=== PATIENT | male | born 1935 | race Caucasian/White ===

== ENCOUNTER 2019-02-22 05:20 | Outpatient (CLI) | payer MEDICARE, OTHER ==
--- NOTE | 2019-02-22 06:32 | Ultrasound Report ---
Reason: LOCALIZED SWELLING,MASS AND LUMP,NECK Procedure Date: 02/22/2019 Accession Number: [id number] / [id number] Procedure: US - Head or Neck Soft Tissue CPT Code: FULL RESULT: EXAM: NECK ULTRASOUND EXAM DATE: 02/22/2019 05:21 AM. CLINICAL HISTORY: LOCALIZED SWELLING,MASS AND LUMP,NECK. COMPARISON: None. TECHNIQUE: Real-time sonographic imaging was performed by the casing inspector utilizing color-flow. Multiple senior human resources representative static images were saved for review. FINDINGS: Ultrasound of the palpable abnormality demonstrates a 4.0 x 3.0 x 2.9 cm mass, likely representing an enlarged lymph node. It appears adjacent to but separate from the submandibular gland. In the lower pole of the right lobe of the thyroid, there is a 2.5 x 2.4 x 1.6 cm heterogeneous nodule with a calcification. Deeper in the right lobe of the thyroid, there is hypoechoic lobulated 2.4 x 2.4 x 2.3 cm nodule, with a calcification. In the lower pole of the left lobe of the thyroid, there is a 3.3 x 2.8 x 2.4 cm heterogeneous nodule with a calcification. There is a 2.2 x 1.6 cm submental lymph node. IMPRESSION: Palpable abnormality correlating with an enlarged right submandibular lymph node. Enlarged submental lymph node. Bilateral suspicious thyroid nodules. RADIA
== END 2019-02-22 05:21 | disposition home or self-care (01) ==
LOC: DI 05:20
PROVIDERS: ATTEND Internal Medicine
DX: R59.0 Localized enlarged lymph nodes (principal)
CPT/HCPCS: 76536

== ENCOUNTER 2019-03-19 07:06 | Outpatient (CLI) | payer MEDICARE, OTHER ==
[2019-03-19] MEDS ORDERED: IOVERSOL 320 100 ML VIAL IVP ONE ×3 (07:07→11:47)
[2019-03-19 07:49] LABS: CREATININE 1.1 mg/dL (0.6-1.2)
--- NOTE | 2019-03-20 11:30 | CT Report ---
Reason: LOCALIZED SWELLING,MASS LUMP-NECK,NEOPLASM UNSPECI Procedure Date: 03/19/2019 Accession Number: [id number] / [id number] Procedure: CT - SOFT TISSUE NECK W CPT Code: FULL RESULT: EXAM: CT SOFT TISSUE NECK WITH CONTRAST. EXAM DATE: 03/19/2019 08:47 AM. HISTORY: Right-sided neck mass and pain. COMPARISONS: Soft tissue neck ultrasound 02/22/2019. TECHNIQUE: Routine soft tissue neck CT protocol. Reconstructions: Coronal and sagittal. IV contrast: 80 mL Optiray 320. In accordance with CT protocol optimization, one or more of the following dose reduction techniques were utilized for this exam: automated exposure control, adjustment of mA and/or KV based on patient size, or use of iterative reconstructive technique. FINDINGS: The right and left thyroid lobe are diffusely enlarged. There are calcifications in each thyroid lobe. Thyroid nodules are better seen on the comparison ultrasound. The reader is referred to that report for findings in thyroid lobe. In the right neck at the level of the submandibular gland there is a well-circumscribed 2.8 x 3.4 cm soft tissue mass which anteriorly displaces the submandibular gland. There is mass effect on the internal jugular vein which is significantly compressed. This extends down to the level of the inferior hyoid. This lesion enhances somewhat similar to skeletal muscle. Nonenlarged lymph nodes are seen bilaterally along each internal jugular chain. No mass is present in either submandibular gland. No mass is present in either parotid gland. No mass is present in the nasopharynx. Parapharyngeal fat is symmetric. There is medial position of the left true vocal cord. No subglottic stenosis is present. No mass is present in either orbit. No enhancing mass is identified and the brain parenchyma. No suspicious spiculated masses present in either lung apex. Degenerative disk disease and osteophyte formation are seen throughout the visualized spine with multilevel cervical foraminal stenosis. There is central canal stenosis at multiple levels in the cervical spine most evident at C5-C6 and C6-C7. IMPRESSION: 1. There is a well-circumscribed mass at level 2 on the right with mass-effect on the submandibular gland and near complete effacement of the internal jugular vein. High on the differential would be a metastatic lymph node or alternatively a lymphoproliferative disorder. 2. The thyroid gland is diffusely enlarged and contains multiple thyroid nodules. CT cannot distinguish benign from malignant thyroid disease. The reader is referred to the patient's thyroid ultrasound report which better demonstrates the patient's thyroid abnormalities. 3. Degenerative disk disease and osteophyte formation are seen throughout the visualized spine. RADIA
== END 2019-03-19 07:07 | disposition home or self-care (01) ==
LOC: DI 07:06
PROVIDERS: ATTEND Otolaryngology
DX: R22.1 Localized swelling, mass and lump, neck (principal); D49.89 Neoplasm of unspecified behavior of other specified sites; E04.2 Nontoxic multinodular goiter; M50.30 Other cervical disc degeneration, unspecified cervical region; M48.02 Spinal stenosis, cervical region
CPT/HCPCS: 36415; 70491; 82565; Q9967

== ENCOUNTER 2019-08-02 15:24 | Emergency (ER) | payer MEDICARE, OTHER ==
[2019-08-02] MEDS ORDERED: SODIUM CHLORIDE 0.9% 1,000 ML IV ONE (17:08)
--- NOTE | 2019-08-02 17:21 | ED Physician Documentation ---
History of Present Illness - Stated complaint Stated Complaint: DEHYDRATION - Chief complaint Chief Complaint: General - History obtained from History obtained from: Patient, Friend - History of Present Illness Timing: Other (He just finished up chemotherapy and radiation for throat cancer. He has been having trouble swallowing despite his oncologist prescribing Magic mouthwash. Morphine helped somewhat. He feels weak and dizzy and he was pale prior to arrival so he is here for IV fluids.) Review of Systems Constitutional: denies: Fever, Chills Cardiac: denies: Chest pain / pressure, Palpitations Respiratory: denies: Dyspnea, Cough GI: denies: Abdominal Pain PD PAST MEDICAL HISTORY - Allergies Allergies/Adverse Reactions: Allergies Allergy/AdvReac Type Severity Reaction Status Date / Time No Known Drug Allergies Allergy Verified 08/02/19 15:38 PD ED PE NORMAL - Vitals Vital signs reviewed: Yes - General General: Alert and oriented X 3, No acute distress - HEENT HEENT: Pharynx benign - Neck Neck: Supple, no meningeal sign, No bony TTP - Cardiac Cardiac: RRR, No murmur - Respiratory Respiratory: No respiratory distress, Clear bilaterally - Abdomen Abdomen: Non tender - Extremities Extremities: No edema, No calf tenderness / cord - Neuro Neuro: Alert and oriented X 3, Normal speech Results - Vitals Vitals: Vital Signs - 24 hr 08/02/19 08/02/19 08/02/19 15:38 17:29 18:32 Temperature 36.5 C Heart Rate 99 74 75 Respiratory 16 18 18 Rate Blood Pressure 138/68 H 119/64 111/55 L O2 Saturation 98 100 98 Oxygen O2 Source Room air - Labs Labs: Laboratory Tests 08/02/19 17:39 Sodium 143 Potassium 4.7 Chloride 109 Carbon Dioxide 24 Anion Gap 10.0 BUN 42 H Creatinine 1.8 H Estimated GFR (MDRD) 36 L Glucose 112 H Calcium 9.2 PD MEDICAL DECISION MAKING - ED course ED course: 83-year-old gentleman with recurrent dehydration related to poor oral intake from recent radiation therapy for throat cancer. He does have mild acute kidney injury and is administered 2 L of fluid here. Departure - Departure Disposition: 01 Home, Self Care Clinical Impression: Dehydration Condition: Good Record reviewed to determine appropriate education?: Yes Comments: Try to drink fluids if you can, return for new or worsening symptoms. You are welcome back any time if you need IV fluids.
[2019-08-02 17:55] LABS: CALCIUM 9.2 mg/dL (8.5-10.3); CREATININE 1.8 mg/dL (0.6-1.2)
[2019-08-02] MEDS ORDERED: LACTATED RINGERS 1,000 ML IV STA (18:06)
[2019-08-02 19:42] VITALS: BP 116/58
== END 2019-08-02 19:45 | disposition home or self-care (01) ==
LOC: ED 15:24
DX: E86.0 Dehydration (principal); N17.9 Acute kidney failure, unspecified; C14.0 Malignant neoplasm of pharynx, unspecified
CPT/HCPCS: 36415; 80048; 96360; 96361; 99283; 99285; J7120

== ENCOUNTER 2020-10-26 02:51 | Outpatient (CLI) | payer MEDICARE, OTHER | END 2020-10-26 02:52 | disposition critical access hospital (66) | LOC: EMS 02:51 | PROVIDERS: ATTEND Surgery | DX: S09.90XA Unspecified injury of head, initial encounter (principal); W18.30XA Fall on same level, unspecified, initial encounter; Y93.89 Activity, other specified; Y92.009 Unspecified place in unspecified non-institutional (private) residence as the place of occurrence of the external cause | CPT/HCPCS: A0425; A0429 ==

== ENCOUNTER 2020-10-26 03:22 | Emergency (ER) | payer MEDICARE, OTHER ==
--- NOTE | 2020-10-26 03:44 | ED Physician Documentation ---
History of Present Illness - Stated complaint Stated Complaint: GLF - History obtained from History obtained from: Patient, EMS - Additonal information Additional information: Pt is brought to the emergency department by EMS after becoming intoxicated this evening and sustaining a ground-level fall. The patient does not have any recollection of the event, though he is aware that he has been drinking tonight. Medics report that the patient has "several mixed drinks". The family reported to medics that the patient stood up from the table and when he did, he seemed to lose his balance and staggering backward, hitting a wall and then falling to the floor. He fell backwards onto the floor, hitting the back of his head and was unconscious for an estimated some minutes, possibly 3-4. The patient awoke on his own and was placed on a backboard in C-spine precautions with c-collar by medics. The patient denies any rib, chest, or abdominal pain. No extremity pain. No shortness of breath. No headache or visual changes. No neck pain. No back pain. No other complaints at this time. Pt states he does not want to be here and does not think there is anything wrong with him and just wants to go home. Review of Systems Ten Systems: 10 systems reviewed and negative Constitutional: reports: Reviewed and negative Eyes: reports: Reviewed and negative Ears: reports: Reviewed and negative Nose: reports: Reviewed and negative Throat: reports: Reviewed and negative Cardiac: reports: Reviewed and negative Respiratory: reports: Reviewed and negative GI: reports: Reviewed and negative : reports: Reviewed and negative Skin: reports: Reviewed and negative Musculoskeletal: reports: Reviewed and negative Neurologic: reports: Head injury, LOC Psychiatric: reports: Reviewed and negative Endocrine: reports: Reviewed and negative Immunocompromised: reports: Reviewed and negative PD PAST MEDICAL HISTORY - Present Medications Home Medications: Ambulatory Orders Medication Instructions Recorded Confirmed Insulin Glargine [Lantus Solostar] 0 unit 10/26/20 Ketoconazole/Skin Cleanser 28 554 gm TP 10/26/20 10/26/20 [Ketodan 2% Foam Kit] Lisinopril [Zestril] 40 mg PO 10/26/20 Metformin HCl [Fortamet] 1,000 mg PO 10/26/20 Simvastatin [Zocor] 40 mg PO 10/26/20 Timolol Maleate/Pf [Timolol 1 each OP 10/26/20 Maleate 0.5% Eye Drop] hydroCHLOROthiazide [Hydrodiuril] 12.5 mg PO DAILY 10/26/20 10/26/20 - Allergies Allergies/Adverse Reactions: Allergies Allergy/AdvReac Type Severity Reaction Status Date / Time No Known Drug Allergies Allergy Verified 08/04/19 07:20 PD ED PE NORMAL - Vitals Vital signs reviewed: Yes - General General: Alert and oriented X 3, No acute distress, Well developed/nourished - HEENT HEENT: PERRL, EOMI, Moist mucous membranes, Other (5 cm hematoma over occiput with skin avulsion, but without bony deformity.) - Neck Neck: Supple, no meningeal sign, No bony TTP - Cardiac Cardiac: RRR, No murmur, Strong equal pulses - Respiratory Respiratory: No respiratory distress, Clear bilaterally - Abdomen Abdomen: Soft, Non tender, Non distended - Back Back: No CVA TTP, No spinal TTP - Derm Derm: Normal color, Warm and dry, No rash - Extremities Extremities: No deformity, No tenderness to palpate, Normal ROM s pain, No ed corazon, No calf tenderness / cord, Other (No tenderness to palpation or pain with range of motion of shoulders, elbows, wrists, hips, knees, or ankles.) - Neuro Neuro: Alert and oriented X 3, acid loader 2-12 intact, No motor deficit, No sensory deficit, Other (Has mildly slowed and slurred speech consistent with report of alcohol intake. However, he is alert and appropriate.) - Psych Psych: Normal mood, Normal affect Results - Vitals Vitals: Vital Signs - 24 hr 10/26/20 10/26/20 10/26/20 03:23 03:42 05:04 Temperature 35.7 C L Heart Rate 70 60 64 Respiratory 16 18 18 Rate Blood Pressure 130/61 105/43 L 99/43 L O2 Saturation 100 98 98 10/26/20 10/26/20 05:48 06:26 Temperature Heart Rate 64 60 Respiratory 18 18 Rate Blood Pressure 99/48 L 104/44 L O2 Saturation 96 98 Oxygen O2 Source Room air - Rads (name of study) CT head Radiology: Final report received, EMP read indepedently, See rad report (No acute disease) CT cervical spine Radiology: Final report received, EMP read indepedently, See rad report (No acute findings) PD MEDICAL DECISION MAKING - ED course Complexity details: reviewed results, re-evaluated patient, considered differential, d/w patient ED course: The patient was without complaints; however, I did feel that given the head trauma and intoxication, he should have CT scans of the head and C-spine perfor med, and found to be unremarkable for acute findings. The patient's skin avulsion on the scalp was dressed with bacitracin. He was deemed stable for discharge home, the family could not come get him right away because they were not yet sober themselves. Patient was without further incident in the emergency department at the time of this dictation. Departure - Departure Disposition: 01 Home, Self Care Clinical Impression: Fall from ground level, Closed head injury with brief loss of consciousness Alcohol intoxication Qualifiers: Complication of substance-induced condition: with unspecified complication Qualified Code(s): F10.929 - Alcohol use, unspecified with intoxication, unspecified Condition: Stable Instructions: ED Alcohol Intoxication, ED Head Injury Closed Comments: The CT scans of your head and neck look goodthere is no evidence of bleeding in your brain or broken bones. Please be very careful when drinking alcohol at your age, as you are more prone to fall and injure yourself in an intoxicated state.
[2020-10-26] MEDS ORDERED: DEXTROSE 50% ABBOJECT 25 GM/50 ML SYRINGE IVP STA (07:11)
[2020-10-26] MEDS ORDERED: DEXTROSE 50% ABBOJECT 25 GM/50 ML SYRINGE ONE (07:20)
--- NOTE | 2020-10-26 10:06 | CT Report ---
PROCEDURE: HEAD WO INDICATIONS: fall/head injury/intoxication CONTRAST: None. TECHNIQUE: 4.5 mm thick angled axial sections acquired from the foramen magnum to the vertex both before and aft er the administration of intravenous contrast. For radiation dose reduction, the following was used: automated exposure control, adjustment of mA and/or kV according to patient size. COMPARISON: None. FINDINGS: Image quality: Excellent. CSF spaces: Basal cisterns are patent. No extra-axial fluid collections. Ventricles are symmetric in size and shape. Brain: No midline shift. No intracranial bleeds or masses. No abnormal intracranial enhancement. There is cerebral volume loss for age. There is periventricular white matter chronic small vessel is chemic change. There is intracranial internal carotid artery atherosclerosis. Skull and face: Left posterior parietal scalp hematoma is seen. Calvarium and visualized facial bone s appear intact, without suspicious lesions. Sinuses: Visualized sinuses and mastoids are clear. IMPRESSION: 1. No CT evidence of acute intracranial pathology. 2. Age-appropriate atrophy and mild to moderate white matter chronic ischemic microangiopathic change s. 3. Left posterior parietal scalp hematoma. No acute skull fracture. Reviewed by: Santi Mahmood MD on 10/26/2020 10:04 AM PST Approved by: Santi Mahmood MD on 10/26/2020 10:04 AM PST Station ID: [id number]
--- NOTE | 2020-10-26 10:07 | CT Report ---
PROCEDURE: CERVICAL SPINE WO INDICATIONS: fall/head injury/intoxication TECHNIQUE: Noncontrast 3 mm thick sections acquired from the skull base to the T4 level. Sagittal and coronal r eformats were then constructed. For radiation dose reduction, the following was used: automated exp osure control, adjustment of mA and/or kV according to patient size. COMPARISON: Neck soft tissue CT dated 03/19/2019.. FINDINGS: Image quality: Excellent. Bones: No fractures or dislocations. Decreased intervertebral disc space and degenerative endplate c hanges are noted throughout cervical spine. Broad-based dorsal disc osteophyte complex formation are noted throughout cervical spine causing [id number] central canal stenosis and bilateral bony fo raminal stenosis most prominent at C6-7 level. Visualized superior ribs are intact. Soft tissues: Prevertebral soft tissues are normal in thickness. No paravertebral hematomas. No ap ical pneumothoraces. IMPRESSION: 1. No acute cervical spine fracture or dislocation. 2. Degenerative disc disease throughout cervical spine as above. No discrepancies from preliminary reading. Reviewed by: Santi Mahmood MD on 10/26/2020 10:05 AM PST Approved by: Santi Mahmood MD on 10/26/2020 10:05 AM PST Station ID: [id number]
[2020-10-26 11:52] VITALS: BP 142/60
== END 2020-10-26 11:52 | disposition home or self-care (01) ==
LOC: EDUNIT# → ED 03:22
DX: S06.9X9A Unspecified intracranial injury with loss of consciousness of unspecified duration, initial encounter (principal); S00.03XA Contusion of scalp, initial encounter; W01.198A Fall on same level from slipping, tripping and stumbling with subsequent striking against other object, initial encounter; F10.929 Alcohol use, unspecified with intoxication, unspecified; E11.9 Type 2 diabetes mellitus without complications; Z79.4 Long term (current) use of insulin
CPT/HCPCS: 70450; 72125; 96374; 99284

== ENCOUNTER 2021-01-01 05:39 | Outpatient (CLI) | payer MEDICARE, OTHER ==
[2021-01-01] MEDS ORDERED: IOVERSOL 320 100 ML VIAL IVP ONE ×2 (06:18→07:50)
[2021-01-01] MEDS ORDERED: IOPAMIDOL-300 50 ML VIAL ONE (06:21)
[2021-01-01] MEDS ORDERED: IOPAMIDOL-300 50 ML VIAL PO ONE (07:51)
--- NOTE | 2021-01-01 10:06 | CT Report ---
PROCEDURE: Abdomen/Pelvis W INDICATIONS: FLANK PAIN, RT LOWER QUADRANT CONTRAST: IV CONTRAST: Optiray 320 ml: 80 PO CONTRAST: Isovue 300 ml50 TECHNIQUE: After the administration of oral and intravenous contrast, 5 mm thick sections acquired from the diap hragms to the symphysis. 5 mm thick coronal and sagittal reformats were acquired. For radiation dos e reduction, the following was used: automated exposure control, adjustment of mA and/or kV accordin g to patient size. COMPARISON: None. FINDINGS: Image quality: Excellent. ABDOMEN: Lung bases: Lung bases are clear. Remote aortic root surgery. Pacemaker. Advanced coronary artery ca lcifications. Mild cardiomegaly. Solid organs: Liver and spleen are normal in size and enhancement. Gallbladder is unremarkable. Bi liary system is non dilated. The uncinate process of the pancreas appears to be somewhat edematous, a nd there is inflammatory fluid inferior to the pancreas and posterior to the pancreas. This may indic ate the presence of acute pancreatitis. No adrenal nodules. There is a 2 mm stone obstructs the right ureter at the level of the right ureterovesical junction. Reference image 87/3. This results in mild to moderate right hydronephrosis. Peritoneum and bowel: Bowel loops demonstrate normal wall thickness and caliber. There is inflammato ry fluid surrounding both kidneys and the retroperitoneal fat, right greater than left. There is also inflammatory fluid between the third portion of the duodenum and proximal jejunum and the aorta and inferior cava. Findings may be related to pancreatitis. Nodes and vessels: No retroperitoneal or mesenteric adenopathy by size criteria. Aorta and inferior vena cava are normal in size. Miscellaneous: No ventral hernias. PELVIS: Genitourinary: Prostate is enlarged. There is diffuse mild bladder wall thickening. Miscellaneous: No inguinal hernias or adenopathy. Bones: No suspicious bony lesions. No vertebral body compression fractures. Extensive lumbar degen erative change with multilevel severe lumbar canal stenosis. IMPRESSION: 1. Question acute pancreatitis. 2. 2 mm right UVJ stone obstructs the right ureter resulting in mild to moderate right hydronephrosis . 3. Advanced coronary artery disease. 4. Prostate enlargement. 5. Severe multilevel lumbar canal stenosis. Reviewed by: Thony So MD on 01/01/2021 10:05 AM PST Approved by: Thony So MD on 01/01/2021 10:05 AM PST Station ID: [id number]
== END 2021-01-01 05:40 | disposition home or self-care (01) ==
LOC: LAB 05:39
PROVIDERS: ATTEND Nurse Practitioner Family
DX: R93.3 Abnormal findings on diagnostic imaging of other parts of digestive tract (principal); N13.2 Hydronephrosis with renal and ureteral calculous obstruction; I25.10 Atherosclerotic heart disease of native coronary artery without angina pectoris; N40.0 Benign prostatic hyperplasia without lower urinary tract symptoms; M47.816 Spondylosis without myelopathy or radiculopathy, lumbar region; M48.061 Spinal stenosis, lumbar region without neurogenic claudication; R10.31 Right lower quadrant pain
CPT/HCPCS: 36415; 74177; 82565; Q9967

== ENCOUNTER 2023-02-09 07:22 | Outpatient (CLI) | payer MEDICARE, OTHER ==
--- NOTE | 2023-02-09 11:05 | XRAY Report ---
PROCEDURE: Knee 3 View BILAT INDICATIONS: OSTEOARTHRITIS OF KNEE TECHNIQUE: 3 views of the bilateral knee(s) were acquired. COMPARISON: X-ray left knee 08/15/2014 FINDINGS: Bones: No fractures or dislocations. There is severe left lateral, right medial and right lateral co mpartment narrowing. This is been progressive compared to 2013. Moderate bilateral patellofemoral com partment narrowing. There is moderate left lateral compartment narrowing. Periarticular osteophytes a re present most severe at the right lateral compartment. No distinct erosions. No suspicious bony les ions. Soft tissues: Minimal bilateral effusions. No suspicious soft tissue calcifications or masses. IMPRESSION: Severe arthritic changes of the knees bilaterally appearing worse on the right. Reviewed by: Raven White MD on 02/09/2023 11:03 AM PDT Approved by: Raven White MD on 02/09/2023 11:03 AM PDT Station ID: [id number]
== END 2023-02-09 07:23 | disposition home or self-care (01) ==
LOC: DI.S 07:22
PROVIDERS: ATTEND Internal Medicine
DX: M17.0 Bilateral primary osteoarthritis of knee (principal)

== ENCOUNTER 2023-06-30 09:04 | Outpatient (CLI) | payer MEDICARE, OTHER ==
--- NOTE | 2023-06-30 14:11 | CT Report ---
PROCEDURE: CT cervical spine without contrast INDICATIONS: ATYPICAL FACIAL PAIN TECHNIQUE: Noncontrast 3 mm thick sections acquired from the skull base to the T4 level. Sagittal and coronal r eformats were then constructed. For radiation dose reduction, the following was used: automated exp osure control, adjustment of mA and/or kV according to patient size. COMPARISON: 10/26/2020 FINDINGS: Image quality: Excellent. Bones: No fractures or dislocations. Visualized superior ribs are intact. Diffuse disc space narrow ing and hypertrophic facet joints are present throughout the exam resulting in grade 1 anterior spina l listhesis at C2-3, retrolisthesis C3-4 and in straightening of the normal cervical lordosis. There is moderate severe central stenosis at C2-3, severe central stenosis C3-4, C5-6 and C6-7 Soft tissues: Prevertebral soft tissues are normal in thickness. No paravertebral hematomas. No ap ical pneumothoraces. Diffuse small vessel atherosclerotic vascular calcification present IMPRESSION: Multilevel degenerative disc disease and arthropathy results in varying degrees of central and forami nal stenosis including severe central stenosis C3-4, C5-6 and C6-7, similar to prior Diffuse small vessel atherosclerotic vascular calcification Reviewed by: Getachew Caldwell MD on 06/30/2023 1:10 PM AKDT Approved by: Getachew Caldwell MD on 06/30/2023 1:10 PM AKDT Station ID: [id number]
== END 2023-06-30 09:05 | disposition home or self-care (01) ==
LOC: DI 09:04
PROVIDERS: ATTEND Internal Medicine
DX: G50.1 Atypical facial pain (principal); M50.31 Other cervical disc degeneration, high cervical region; M47.812 Spondylosis without myelopathy or radiculopathy, cervical region; I70.8 Atherosclerosis of other arteries